=== PATIENT | female | born 1975 | race African-American/Black ===

== ENCOUNTER 2016-10-12 18:23 | Emergency (ER) | payer OTHER ==
[~2016-10-12] VITALS: Ht 157.5 cm; Wt 59.0 kg
[~2016-10-12 18:23] MED LIST: AMIT25TA PO; GABA-586 PO; LAMO50TA3 PO; LEVO100T5 PO
[2016-10-12 19:18] VITALS: BP 92/54
[2016-10-12] MEDS ORDERED: PRED20TA PO (19:43)
--- NOTE | 2016-10-12 19:44 | PHYS DOC ---
Past Medical History Past Medical History: Fibromyalgia, Hypothyroid, IBS, Other Additional Past Medical Histor: PTSD Past Surgical History: , Other Additional Past Surgical Histo: ganglion cyst removal, carpal tunnel release Alcohol Use: Occasionally Drug Use: Marijuana Adult General Chief Complaint Chief Complaint: ITCHING HPI HPI Patient is a 41 year old female presents emergency Department with a complaint of ongoing, diffuse itchy rash that began last night. Patient denies any changes in person hygiene products or body soaps. She denies any personal history of atopy. Patient denies taking any Benadryl as she does not have any access to get any. She denies any facial swelling or difficulty breathing. Review of Systems Review of Systems Constitutional: Denies fever or chills [] Eyes: Denies change in visual acuity, redness, or eye pain [] HENT: Denies nasal congestion or sore throat [] Respiratory: Denies cough or shortness of breath [] Cardiovascular: No additional information not addressed in HPI [] GI: Denies abdominal pain, nausea, vomiting, bloody stools or diarrhea [] : Denies dysuria or hematuria [] Musculoskeletal: Denies back pain or joint pain [] Integument: Denies rash or skin lesions [] Neurologic: Denies headache, focal weakness or sensory changes [] Endocrine: Denies polyuria or polydipsia [] Current Medications Current Medications Current Medications Medications (Trade) Dose Ordered Sig/Blanco Start Time Stop Time Status Last Admin Dose Admin Diphenhydramine HCl (Benadryl) 25 mg 1X ONCE 10/12/16 20:00 10/12/16 20:00 DC 10/12/16 19:48 25 MG Prednisone (Prednisone) 50 mg 1X ONCE 10/12/16 20:00 10/12/16 20:00 DC 10/12/16 19:48 50 MG Allergies Allergies Allergies Coded Allergies Type Severity Reaction Last Updated Verified Penicillins Allergy Intermediate rash 06/29/13 Yes Sulfa (Sulfonamide Antibiotics) Allergy Intermediate rash 06/29/13 Yes hydrocodone Allergy Unknown nausea and vomiting 10/02/13 Yes acetaminophen Adverse Reaction Unknown nausea 10/02/13 Yes oxycodone HCl Adverse Reaction Unknown nausea 10/02/13 Yes Physical Exam Physical Exam Constitutional: Well developed, well nourished, no acute distress, non-toxic appearance. [] HENT: Normocephalic, atraumatic, bilateral external ears normal, oropharynx moist, no oral exudates, nose normal. There is no angioedema. Eyes: PERRLA, EOMI, conjunctiva normal, no discharge. [] Neck: Normal range of motion, no tenderness, supple, no stridor. [] Cardiovascular:Heart rate regular rhythm, no murmur [] Lungs & Thorax: Bilateral breath sounds clear to auscultation Abdomen: Bowel sounds normal, soft, no tenderness, no masses, no pulsatile masses. [] Skin: Diffusely spread maculopapular rash to patient's trunk and extremities. There is some excoriation from scratching. There is no specific pattern or herald patch this rash. Rash is consistent with contact dermatitis. Back: No tenderness, no CVA tenderness. [] Extremities: No tenderness, no cyanosis, no clubbing, ROM intact, no edema. [] Neurologic: Alert and oriented X 3, normal motor function, normal sensory function, no focal deficits noted. [] Psychologic: Affect normal, judgement normal, mood normal. [] Current Patient Data Vital Signs Vital Signs Date Time Temp Pulse Resp B/P Pulse Ox O2 Delivery O2 Flow Rate FiO2 10/12/16 19:18 97.9 94 20 100 Room Air 97.9 EKG EKG [] Radiology/Procedures Radiology/Procedures [] Course & Med Decision Making Course & Med Decision Making Pertinent Labs and Imaging studies reviewed. (See chart for details) [] Dragon Disclaimer Dragon Disclaimer This electronic medical record was generated, in whole or in part, using a voice recognition dictation system. Departure Departure Impression: Primary Impression: Contact dermatitis Disposition: 01 HOME, SELF-CARE Condition: GOOD Referrals: GUME KHANNA MD (PCP) Patient Instructions: Contact Dermatitis, [id number] Additional Instructions: 1. Take the medication as prescribed. Take 25-50 mg of Benadryl every 6-8 hours for itching. 2. Review the discharge instructions provided for self-care and reasons to return to the emergency department. 3. Follow-up with your primary care doctor in 5-7 days for reexamination. Scripts Prednisone 20 Mg Tablet2 Tab PO DAILY contact dermatitis #5 TAB Prov:CAROLS TURK 10/12/16 Problem Qualifiers Primary Impression: Contact dermatitis Contact dermatitis type: allergic Contact dermatitis trigger: unspecified trigger Qualified Code: L23.9 - Allergic contact dermatitis, unspecified cause CARLOS TURK Oct 12, 2016 19:44
[2016-10-12] MEDS ORDERED: PREDNISONE 10 MG TABLET PO ONE (20:00)
[2016-10-12] MEDS ORDERED: DIPHENHYDRAMINE HCL 25 MG CAPSULE PO ONE (20:00)
== END 2016-10-12 19:50 | disposition home or self-care (01) ==
LOC: ER 18:23
DX: L23.9 Allergic contact dermatitis, unspecified cause (principal); M79.7 Fibromyalgia; E03.9 Hypothyroidism, unspecified; K58.9 Irritable bowel syndrome, unspecified; F43.10 Post-traumatic stress disorder, unspecified; F12.10 Cannabis abuse, uncomplicated; Z88.0 Allergy status to penicillin; Z88.2 Allergy status to sulfonamides; Z88.6 Allergy status to analgesic agent; Z88.5 Allergy status to narcotic agent
CPT/HCPCS: 99283; J7512; Q0163

== ENCOUNTER → 2016-11-02 | Outpatient (CLI) | payer OTHER ==
[2016-10-12 19:18] VITALS: BP 92/54
[~2016-11-02] MED LIST changes: +PRED20TA PO
--- NOTE | 2016-11-02 09:40 | RAD ---
DATE: 11/02/2016 EXAM: DIGITAL SCREEN BILAT W/CAD HISTORY: Routine screening COMPARISON: 10/08/2015 This study was interpreted with the benefit of Computerized Aided Detection (CAD). FINDINGS: There are scattered fibroglandular densities in the breasts. No new or enlarging breast densities are seen. Minimal benign calcification is present. No suspicious microcalcifications have developed. IMPRESSION: Stable mammograms without evidence of malignancy. BI-RADS CATEGORY: 2 BENIGN FINDING(S) RECOMMENDED FOLLOW-UP: 12M 12 MONTH FOLLOW-UP PQRS compliance statement: Patient information was entered into a reminder system with a target due date for the next mammogram. Mammography is a sensitive method for finding small breast cancers, but it does not detect them all and is not a substitute for careful clinical examination. A negative mammogram does not negate a clinically suspicious finding and should not result in delay in biopsying a clinically suspicious abnormality. "Our facility is accredited by the [employer] Mammography Program."
== END | disposition home or self-care (01) ==
LOC: MAMMO 08:45
PROVIDERS: ATTEND Internal Medicine
DX: Z12.31 Encounter for screening mammogram for malignant neoplasm of breast (principal)
CPT/HCPCS: G0202; 77067

== ENCOUNTER 2017-09-02 08:24 | Emergency (ER) | payer OTHER ==
[2017-09-02 08:43] LABS: URINE HCG POC HCG NEGATIVE (Negative)
[2017-09-02 08:46] LABS: BILIRUBIN,URINE NEGATIVE (NEG); CLARITY,URINE CLEAR; COLOR,URINE YELLOW; GLUCOSE,URINE NEGATIVE (NEG); NITRITE,URINE NEGATIVE (NEG); PH,URINE 5.5; PROTEIN,URINE NEGATIVE (NEG-TRACE); UROBILINOGEN,URINE 0.2 mg/dL (0.2 mg/dL)
[2017-09-02 08:49] LABS: BACTERIA,URINE MOD /HPF (0-FEW); SQUAMOUS EPITHELIAL CELL,UR MANY /LPF
[2017-09-02 08:50] LABS: RBC,URINE OCC /HPF (0-2)
== END 2017-09-02 09:15 | disposition home or self-care (01) ==
LOC: ER 09:15
DX: B37.9 Candidiasis, unspecified (principal); E03.9 Hypothyroidism, unspecified; F12.10 Cannabis abuse, uncomplicated; K58.9 Irritable bowel syndrome, unspecified; Z88.1 Allergy status to other antibiotic agents; Z88.0 Allergy status to penicillin; Z88.5 Allergy status to narcotic agent; Z88.6 Allergy status to analgesic agent; Z88.8 Allergy status to other drugs, medicaments and biological substances
CPT/HCPCS: 81001; 81025; 99283

== ENCOUNTER 2017-09-25 16:34 | Emergency (ER) | payer OTHER | END 2017-09-25 17:45 | disposition left against medical advice (07) | LOC: ER 16:34 | DX: M25.531 Pain in right wrist (principal); Z88.5 Allergy status to narcotic agent; Z88.0 Allergy status to penicillin; Z88.2 Allergy status to sulfonamides; Z88.6 Allergy status to analgesic agent; Z88.1 Allergy status to other antibiotic agents; Z53.21 Procedure and treatment not carried out due to patient leaving prior to being seen by health care provider ==

== ENCOUNTER → 2017-12-07 | Outpatient (CLI) | payer OTHER | END | disposition home or self-care (01) | LOC: MAMMO 07:50 | DX: Z12.31 Encounter for screening mammogram for malignant neoplasm of breast (principal) | CPT/HCPCS: 77067 ==

== ENCOUNTER 2018-01-25 07:22 | Emergency (ER) | payer OTHER ==
[2018-01-25 07:47] LABS: URINE HCG POC HCG NEGATIVE (Negative)
[2018-01-25 07:59] LABS: BILIRUBIN,URINE NEGATIVE (NEG); CLARITY,URINE CLEAR; COLOR,URINE YELLOW; GLUCOSE,URINE NEGATIVE (NEG); NITRITE,URINE NEGATIVE (NEG); PH,URINE 5.5; PROTEIN,URINE NEGATIVE (NEG-TRACE); UROBILINOGEN,URINE 0.2 mg/dL (0.2 mg/dL)
[2018-01-25 08:05] LABS: SQUAMOUS EPITHELIAL CELL,UR MOD /LPF
[2018-01-25 08:06] LABS: BACTERIA,URINE MODERATE /HPF (0-FEW)
[2018-01-25] MEDS: AZITHROMYCIN 250 MG TABLET. PO (08:20)
[2018-01-25] MEDS: cefTRIAXone IM 250 MG VIAL IM (08:22)
== END 2018-01-25 08:42 | disposition home or self-care (01) ==
LOC: ER 07:22
DX: R30.0 Dysuria (principal); E03.9 Hypothyroidism, unspecified; Z98.51 Tubal ligation status; Z88.0 Allergy status to penicillin; Z88.5 Allergy status to narcotic agent; Z88.2 Allergy status to sulfonamides; Z88.6 Allergy status to analgesic agent; Z88.8 Allergy status to other drugs, medicaments and biological substances
CPT/HCPCS: 81001; 81025; 87086; 87491; 87591; 96372; 99284; J0696; Q0144

== ENCOUNTER 2018-08-29 19:23 | Emergency (ER) | payer OTHER ==
[~2018-08-29] VITALS: Ht 157.5 cm; Wt 55.8 kg
[~2018-08-29 19:23] MED LIST changes: +FLUC150T PO; -GABA-586 PO; +GABA300C18 PO; +KETO15CR2 TP; +NITR100C62 PO; +PHEN100T82 PO
[2018-08-29 19:42] LABS: BILIRUBIN,URINE NEGATIVE (NEG); CLARITY,URINE CLEAR; COLOR,URINE YELLOW; NITRITE,URINE NEGATIVE (NEG); PH,URINE 5.5; PROTEIN,URINE NEGATIVE (NEG-TRACE); UROBILINOGEN,URINE 0.2 mg/dL (0.2 mg/dL)
[2018-08-29 19:50] LABS: BACTERIA,URINE FEW /HPF (0-FEW); RBC,URINE 0 /HPF (0-2); SQUAMOUS EPITHELIAL CELL,UR MANY /LPF; WBC,URINE RARE /HPF (0-4)
[2018-08-29] MEDS ORDERED: KETOROLAC 30 MG/ML VIAL. IV ONE (20:30)
--- NOTE | 2018-08-29 21:01 | PHYS DOC ---
Past Medical History Past Medical History: Fibromyalgia, Hypothyroid, IBS, Other Additional Past Medical Histor: PTSD Past Surgical History: , Tubal ligation, Other Additional Past Surgical Histo: ganglion cyst removal, carpal tunnel release, D &C, ENDOMETRIAL ABLATION Alcohol Use: None Drug Use: Marijuana Adult General Chief Complaint Chief Complaint: PAIN ON URINATION [facility] HPI Patient is a 43 year old female with a history of IBS, fibromyalgia, who presents to the ED today complaining of dysuria and pain around her urethra that began today. Patient denies any fever, nausea, vomiting. She states she has slight lower abdominal pain diffusely. She describes the pain as pressure and rates it as mild, she states the pain is intermittent. Denies any chance she is . Review of Systems Review of Systems Constitutional: Denies fever or chills [] Eyes: Denies change in visual acuity, redness, or eye pain [] HENT: Denies nasal congestion or sore throat [] Respiratory: Denies cough or shortness of breath [] Cardiovascular: No additional information not addressed in HPI [] GI: Reports slight lower abdominal pain, denies nausea, vomiting, bloody stools or diarrhea [] : Reports dysuria and urethral pain, denies hematuria [] Musculoskeletal: Denies back pain or joint pain [] Integument: Denies rash or skin lesions [] Neurologic: Denies headache, focal weakness or sensory changes [] All other systems were reviewed and found to be within normal limits, except as documented in this note. Current Medications Current Medications Current Medications Medications (Trade) Dose Ordered Sig/Blanco Start Time Stop Time Status Last Admin Dose Admin Info (CONTRAST GIVEN -- Rx MONITORING) 1 each PRN DAILY PRN 08/29/18 21:30 08/31/18 21:29 Iohexol (Omnipaque 300 Mg/ml) 75 ml 1X ONCE 08/29/18 21:30 08/29/18 21:31 DC 08/29/18 21:31 75 ML Ketorolac Tromethamine (Toradol 30mg Vial) 30 mg 1X ONCE 08/29/18 20:30 08/29/18 20:31 DC 08/29/18 20:52 30 MG Allergies Allergies Allergies Coded Allergies Type Severity Reaction Last Updated Verified Penicillins Allergy Intermediate rash 01/25/18 Yes Sulfa (Sulfonamide Antibiotics) Allergy Intermediate rash 06/29/13 Yes fluconazole Allergy Mild Blisters 09/02/17 Yes hydrocodone Allergy Unknown nausea and vomiting 10/02/13 Yes acetaminophen Adverse Reaction Unknown nausea 10/02/13 Yes oxycodone HCl Adverse Reaction Unknown nausea 10/02/13 Yes Physical Exam Physical Exam Constitutional: Well developed, well nourished, no acute distress, non-toxic appearance. [] HENT: Normocephalic, atraumatic, bilateral external ears normal, oropharynx moist, no oral exudates, nose normal. [] Eyes: PERRLA, EOMI, conjunctiva normal, no discharge. [] Neck: Normal range of motion, no tenderness, supple, no stridor. [] Cardiovascular:Heart rate regular rhythm, no murmur [] Lungs & Thorax: Bilateral breath sounds clear to auscultation [] Abdomen: Bowel sounds normal, soft, no tenderness, no masses, no pulsatile masses. [] Pelvic exam External pelvic appears normal, cervix is not well visualized, no CMT, no adnexal tenderness, small amount of white discharge noted in the vaginal vault. Skin: Warm, dry, no erythema, no rash. [] Back: No tenderness, no CVA tenderness. [] Extremities: No tenderness, no cyanosis, no clubbing, ROM intact, no edema. [] Neurologic: Alert and oriented X 3, normal motor function, normal sensory function, no focal deficits noted. [] Psychologic: Affect normal, judgement normal, mood normal. [] Current Patient Data Vital Signs Vital Signs Date Time Temp Pulse Resp B/P (MAP) Pulse Ox O2 Delivery O2 Flow Rate FiO2 08/29/18 19:32 97.9 108 18 112/54 (73) 99 Room Air 97.9 Lab Values Laboratory Tests Test 08/29/18 19:35 08/29/18 20:50 Urine Collection Type Unknown Urine Color Yellow Urine Clarity Clear Urine pH 5.5 Urine Specific Corrigan 1.025 Urine Protein Negative mg/dL (NEG-TRACE) Urine Glucose (UA) Negative mg/dL (NEG) Urine Ketones (Stick) Negative mg/dL (NEG) Urine Blood Negative (NEG) Urine Nitrite Negative (NEG) Urine Bilirubin Negative (NEG) Urine Urobilinogen Dipstick 0.2 mg/dL (0.2 mg/dL) Urine Leukocyte Esterase Negative (NEG) Urine RBC 0 /HPF (0-2) Urine WBC Rare /HPF (0-4) Urine Squamous Epithelial Cells Many /LPF Urine Bacteria Few /HPF (0-FEW) Urine Mucus Mod /LPF Urine Opiates Screen Neg (NEG) Urine Methadone Screen Neg (NEG) Urine Barbiturates Neg (NEG) Urine Phencyclidine Screen Neg (NEG) Urine Amphetamine/Methamphetamine Neg (NEG) Urine Benzodiazepines Screen Neg (NEG) Urine Cocaine Screen Neg (NEG) Urine Cannabinoids Screen Pos (NEG) Urine Ethyl Alcohol Neg (NEG) White Blood Count 6.7 x10^3/uL (4.0-11.0) Red Blood Count 4.23 x10^6/uL (3.50-5.40) Hemoglobin 12.4 g/dL (12.0-15.5) Hematocrit 37.9 % (36.0-47.0) Mean Corpuscular Volume 90 fL (79-100) Mean Corpuscular Hemoglobin 29 pg (25-35) Mean Corpuscular Hemoglobin Concent 33 g/dL (31-37) Red Cell Distribution Width 15.4 % (11.5-14.5) H Platelet Count 194 x10^3/uL (140-400) Neutrophils (%) (Auto) 53 % (31-73) Lymphocytes (%) (Auto) 37 % (24-48) Monocytes (%) (Auto) 6 % (0-9) Eosinophils (%) (Auto) 4 % (0-3) H Basophils (%) (Auto) 1 % (0-3) Neutrophils # (Auto) 3.5 x10^3uL (1.8-7.7) Lymphocytes # (Auto) 2.5 x10^3/uL (1.0-4.8) Monocytes # (Auto) 0.4 x10^3/uL (0.0-1.1) Eosinophils # (Auto) 0.3 x10^3/uL (0.0-0.7) Basophils # (Auto) 0.0 x10^3/uL (0.0-0.2) Sodium Level 143 mmol/L (136-145) Potassium Level 3.9 mmol/L (3.5-5.1) Chloride Level 105 mmol/L (98-107) Carbon Dioxide Level 29 mmol/L (21-32) Anion Gap 9 (6-14) Blood Urea Nitrogen 16 mg/dL (7-20) Creatinine 0.8 mg/dL (0.6-1.0) Estimated GFR (Cockcroft-Gault) 93.9 BUN/Creatinine Ratio 20 (6-20) Glucose Level 101 mg/dL (70-99) H Calcium Level 9.4 mg/dL (8.5-10.1) Total Bilirubin 0.2 mg/dL (0.2-1.0) Aspartate Amino Transferase (AST) 10 U/L (15-37) L Alanine Aminotransferase (ALT) 17 U/L (14-59) Alkaline Phosphatase 87 U/L (46-116) Total Protein 7.2 g/dL (6.4-8.2) Albumin 3.4 g/dL (3.4-5.0) Albumin/Globulin Ratio 0.9 (1.0-1.7) L Lipase 204 U/L (73-393) Ethyl Alcohol Level < 10 mg/dL (0-10) Laboratory Tests 08/29/18 20:50 Laboratory Tests 08/29/18 20:50 Microbiology 08/29/18 Wet Prep - Final, Complete EKG EKG [] Radiology/Procedures Radiology/Procedures []PROCEDURE: CT ABD PELV W/ IV CONTRST ONLY ADDENDUM Addendum: Impression #2 should read fullness is seen in the cervix. Correlate with physical exam for cervicitis. Electronically signed by: Jens Matias DO (08/29/2018 10:00 PM) [facility] DICTATED AND SIGNED BY: JENS MATIAS DO DATE: 08/29/18 CC: IKE ST APRN; GUME KHANNA MD ~ RS Compliance statement: One or more of the following individualized dose reduction techniques were utilized for this examination: 1. Automated exposure control. 2. Adjustment of the mA and/or kV according to patient size. 3. Use of iterative reconstruction technique. Indication:LLQ pain and burning w urination x 4 days, [id number] 75ml, no priors TECHNIQUE: CT abdomen and pelvis with IV contrast with multiplanar reformats. COMPARISON: None FINDINGS: Heart is normal in size. No pericardial or pleural effusion. Clear lung bases. Liver, spleen, gallbladder, pancreas, adrenals and kidneys are within normal limits. No enlarged retroperitoneal or pelvic adenopathy. No free pelvic fluid or ascites. No bowel obstruction. Anteverted uterus. Fullness is seen in the cervix. Urinary bladder is decompressed however shows no radiopaque stone. No pneumoperitoneum. No suspicious bony lesion. IMPRESSION: 1. No nephrolithiasis or hydronephrosis. 2. Fullness is seen in the cervix. Correlate with physical exam for sinusitis. Electronically signed by: Jens Matias DO (08/29/2018 9:44 PM) [facility] DICTATED and SIGNED BY: JENS MATIAS DO DATE: 08/29/182138 Course & Med Decision Making Course & Med Decision Making Pertinent Labs and Imaging studies reviewed. (See chart for details) This is a 43-year-old female patient presenting to the ED today complaining of dysuria and slight abdominal pain with urethral pain that began today, urine analysis is negative for UTI.Wet prep negative for any acute findings. CBC, CMP , no acute findings. CT of the abdomen and pelvic was noted for fullness in the cervix. I went ahead and treated this patient for possibility of PID and requested her to f/u up with her OBGYN in 1-2 weeks. Dragon Disclaimer Dragon Disclaimer This electronic medical record was generated, in whole or in part, using a voice recognition dictation system. Departure Departure Impression: Primary Impression: Dysuria Disposition: 01 HOME, SELF-CARE Condition: STABLE Referrals: GUME KHANNA MD (PCP) JOSUÉ BECK MD follow up next week Patient Instructions: Dysuria-Brief Additional Instructions: You were evaluated in the emergency room, as discussed, I highly recommend you follow-up with Dr. Beck in the next 1-2 weeks. Please come back to the emergency room at any point symptoms worsen. IKE ST APRN Aug 29, 2018 21:01
[2018-08-29 21:04] LABS: BASO % 1 % (0-3); EOS # 0.3 x10^3/uL (0.0-0.7); EOS % 4 % (0-3); HEMATOCRIT 37.9 % (36.0-47.0); HEMOGLOBIN 12.4 g/dL (12.0-15.5); LYMPH # 2.5 x10^3/uL (1.0-4.8); LYMPH % 37 % (24-48); MEAN CORPUSCULAR HEMOGLOBIN 29 pg (25-35); MEAN CORPUSCULAR HGB CONC 33 g/dL (31-37); MEAN CORPUSCULAR VOLUME 90 fL (79-100); MONO # 0.4 x10^3/uL (0.0-1.1); MONO % 6 % (0-9); NEUT # 3.5 x10^3uL (1.8-7.7); NEUT % 53 % (31-73); PLATELET COUNT 194 x10^3/uL (140-400); RED BLOOD COUNT 4.23 x10^6/uL (3.50-5.40); RED CELL DISTRIBUTION WIDTH 15.4 % (11.5-14.5); WHITE BLOOD COUNT 6.7 x10^3/uL (4.0-11.0)
[2018-08-29 21:17] LABS: CALCIUM 9.4 mg/dL (8.5-10.1); CREATININE 0.8 mg/dL (0.6-1.0); GFR 93.9; POTASSIUM 3.9 mmol/L (3.5-5.1)
[2018-08-29 21:18] LABS: AMPHETAMINE/METHAMPHETAMINE NEG (NEG); BARBITURATES NEG (NEG); BENZODIAZEPINES NEG (NEG); CANNABINOIDS POS (NEG); COCAINE NEG (NEG); METHADONE NEG (NEG); OPIATES NEG (NEG); PHENCYCLIDINE NEG (NEG)
[2018-08-29 21:22] LABS: ALBUMIN 3.4 g/dL (3.4-5.0); ALBUMIN/GLOBULIN RATIO 0.9 (1.0-1.7); TOTAL BILIRUBIN 0.2 mg/dL (0.2-1.0); TOTAL PROTEIN 7.2 g/dL (6.4-8.2)
[2018-08-29] MEDS ORDERED: IOHEXOL 300 MG/ML 100ML VIAL. IV ONE (21:30)
[2018-08-29] MEDS ORDERED: CONTRAST GIVEN. MC PRN (21:30)
--- NOTE | 2018-08-29 21:47 | RAD ---
PQRS Compliance statement: One or more of the following individualized dose reduction techniques were utilized for this examination: 1. Automated exposure control. 2. Adjustment of the mA and/or kV according to patient size. 3. Use of iterative reconstruction technique. Indication:LLQ pain and burning w urination x 4 days, [id number] 75ml, no priors TECHNIQUE: CT abdomen and pelvis with IV contrast with multiplanar reformats. COMPARISON: None FINDINGS: Heart is normal in size. No pericardial or pleural effusion. Clear lung bases. Liver, spleen, gallbladder, pancreas, adrenals and kidneys are within normal limits. No enlarged retroperitoneal or pelvic adenopathy. No free pelvic fluid or ascites. No bowel obstruction. Anteverted uterus. Fullness is seen in the cervix. Urinary bladder is decompressed however shows no radiopaque stone. No pneumoperitoneum. No suspicious bony lesion. IMPRESSION: 1. No nephrolithiasis or hydronephrosis. 2. Fullness is seen in the cervix. Correlate with physical exam for sinusitis. Electronically signed by: Jens Matias DO (08/29/2018 9:44 PM) [facility]
[2018-08-29] MEDS ORDERED: metroNIDAZOLE 500 MG TABLET PO ONE (22:30)
[2018-08-29] MEDS ORDERED: cefTRIAXone IM 250 MG VIAL IM ONE (22:30)
[2018-08-29] MEDS ORDERED: CETIRIZINE HCL 10 MG TABLET. PO ONE (22:30)
[2018-08-29] MEDS ORDERED: AZITHROMYCIN 250 MG TABLET. PO ONE (22:30)
[2018-08-29 22:37] VITALS: BP 108/59
[2018-08-31 13:21] LABS: GC PROBE Negative (Negative)
[2018-11-10] MEDS ORDERED: TRAM50TA PO (13:19)
[2018-11-10] MEDS ORDERED: NAPR-514 PO (13:19)
== END 2018-08-29 23:00 | disposition home or self-care (01) ==
LOC: ER 19:23
DX: R30.0 Dysuria (principal); R10.30 Lower abdominal pain, unspecified; E03.9 Hypothyroidism, unspecified; Z98.890 Other specified postprocedural states; Z98.51 Tubal ligation status; Z88.5 Allergy status to narcotic agent; Z88.0 Allergy status to penicillin; Z88.6 Allergy status to analgesic agent; Z88.8 Allergy status to other drugs, medicaments and biological substances
CPT/HCPCS: 36415; 74177; 80053; 80307; 81001; 83690; 85025; 87491; 87591; 96372; 96374; 99284; G0480; J0696; J1885; Q0111; Q0144; Q9967

== ENCOUNTER 2018-10-10 13:30 | Inpatient (IN) | payer OTHER ==
[~2018-10-10] VITALS: Ht 157.5 cm; Wt 59.4 kg
[2018-11-06] MEDS ORDERED: LEVO112T4 PO (18:13)
[2018-11-06] MEDS ORDERED: VALA500T PO (18:14)
[2018-11-06] MEDS ORDERED: CHOL500016 PO (18:16)
[2018-11-06] MEDS ORDERED: PRAM0.125 PO (18:16)
[2018-11-06] MEDS ORDERED: IBUP200T44 PO (18:18)
[2018-11-06] MEDS ORDERED: MULT1TAB52 PO (18:18)
[2018-11-08] VITALS (7 sets, daily range): BP systolic 116–126; BP diastolic 62–74
[2018-11-08] MEDS ORDERED: CLINDAMYCIN 900MG PREMIX 50 ML IV ONE ×2 (06:53→07:00)
[2018-11-08] MEDS ORDERED: DEXAMETHASONE SOD PHOS 4 MG/ML VIAL ONE ×2 (06:55→06:56)
[2018-11-08] MEDS ORDERED: ONDANSETRON PF 4 MG/2 ML VIAL. IV PRN ×2 (07:00→08:15)
[2018-11-08] MEDS ORDERED: LIDOCAINE 1% PF 2 ML VIAL. ID PRN (07:00)
[2018-11-08] MEDS ORDERED: MORPHINE SULFATE 2 MG/ML VIAL. IV PRN (07:00)
[2018-11-08] MEDS ORDERED: fentaNYL PF VIAL 100 MCG/2 ML VIAL IV PRN (07:00)
[2018-11-08] MEDS ORDERED: IV RINGERS,LACTATED 1000ML 1,000 ML IV SCH (07:00)
[2018-11-08] MEDS ORDERED: HYDROmorphone 2 MG/ML VIAL IV PRN (07:00)
[2018-11-08] MEDS ORDERED: PROCHLORPERAZINE 10 MG/2 ML VIAL. IV PRN (07:00)
[2018-11-08] MEDS ORDERED: fentaNYL PF VIAL 100 MCG/2 ML VIAL ONE ×3 (07:05→09:23)
[2018-11-08] MEDS ORDERED: SUCCINYLCHOLINE 200 MG/10 ML VIAL. ONE (07:05)
[2018-11-08] MEDS ORDERED: PROPOFOL 20 ML IV ONE (07:05)
[2018-11-08] MEDS ORDERED: LIDOCAINE 2% PF 5 ML VIAL. ONE (07:05)
[2018-11-08] MEDS ORDERED: ROCURONIUM 50 MG/5 ML VIAL. ONE (07:05)
[2018-11-08 07:33] LABS: BASO % 1 % (0-3); EOS # 0.3 x10^3/uL (0.0-0.7); EOS % 4 % (0-3); HEMATOCRIT 38.7 % (36.0-47.0); LYMPH # 2.6 x10^3/uL (1.0-4.8); LYMPH % 38 % (24-48); MEAN CORPUSCULAR HEMOGLOBIN 30 pg (25-35); MEAN CORPUSCULAR HGB CONC 34 g/dL (31-37); MEAN CORPUSCULAR VOLUME 90 fL (79-100); MONO # 0.4 x10^3/uL (0.0-1.1); MONO % 6 % (0-9); NEUT # 3.6 x10^3uL (1.8-7.7); NEUT % 52 % (31-73); PLATELET COUNT 197 x10^3/uL (140-400); RED BLOOD COUNT 4.29 x10^6/uL (3.50-5.40); RED CELL DISTRIBUTION WIDTH 14.4 % (11.5-14.5)
[2018-11-08 07:39] LABS: U PREG PATIENT NEGATIVE (NEG)
[2018-11-08] MEDS: CLINDAMYCIN 600MG PREMIX 50 ML IV SCH (07:42)
[2018-11-08] MEDS ORDERED: DESFLURANE 61 TO 120 MINUTES IH ONE (07:55)
[2018-11-08] MEDS ORDERED: diphenhydrAMINE 50 MG/ML VIAL IV PRN (08:15)
[2018-11-08] MEDS ORDERED: CALCIUM CARBONATE 500 MG TAB.CHEW PO PRN (08:15)
[2018-11-08] MEDS ORDERED: 0.9 % SODIUM CHLORIDE 10 ML DISP.SYRIN. IV PRN (08:15)
[2018-11-08] MEDS ORDERED: DEXTROSE 50% 25 GM / 50ML DISP.SYRIN. IV PRN (08:15)
[2018-11-08] MEDS ORDERED: NALOXONE 0.4 MG/ML VIAL. IV PRN (08:15)
[2018-11-08] MEDS ORDERED: oxyCODONE/APAP 5/325 1 TAB TABLET PO PRN (08:15)
[2018-11-08] MEDS ORDERED: MAG HYDROX/ALUMINUM HYD/SIMETH 30 ML ORAL.SUSP PO PRN (08:15)
[2018-11-08] MEDS ORDERED: ZOLPIDEM 5 MG TABLET. PO PRN (08:15)
[2018-11-08] MEDS ORDERED: diphenhydrAMINE HCL 25 MG CAPSULE PO PRN (08:15)
[2018-11-08] MEDS ORDERED: ONDANSETRON PF 4 MG/2 ML VIAL. ONE (08:26)
[2018-11-08] MEDS ORDERED: NEOSTIGMINE METHYLSULFATE 5 MG/5 ML SYRINGE. ONE (08:27)
[2018-11-08] MEDS ORDERED: GLYCOPYRROLATE 1 MG/5 ML VIAL. ONE (08:27)
[2018-11-08] MEDS ORDERED: FAMOTIDINE 20 MG/2 ML VIAL ONE (08:34)
--- NOTE | 2018-11-08 09:08 | PDOC ---
BRIEF OPERATIVE NOTE Date: November 08, 2018 Pre-Op Diagnosis AOB/fibroids Post-Op Diagnosis Same Procedure Performed FRANCINE Surgeon Ebony Anesthesia Type: General Blood Loss 150 Specimens Obtained Uterus Complications None JOSUÉ LORD MD November 08, 2018 09:08
[2018-11-08] MEDS: fentaNYL PF VIAL 100 MCG/2 ML VIAL IV PRN ×2 (09:30→10:10)
[2018-11-08] MEDS: HYDROmorphone 2 MG/ML VIAL IV PRN ×3 (10:50→20:04)
[2018-11-08] MEDS: KETOROLAC 30 MG/ML VIAL. IV SCH ×2 (14:34→20:37)
[2018-11-08] MEDS: DOCUSATE SODIUM 100 MG CAPSULE. PO SCH (20:49)
[2018-11-08] MEDS: SENNOSIDES/DOCUSATE 8.6/50MG TABLET. PO SCH (20:49)
[2018-11-09] MEDS ORDERED: IBUPROFEN 400 MG TABLET. PO PRN (00:45)
[2018-11-09] MEDS: KETOROLAC 30 MG/ML VIAL. IV SCH ×2 (02:32→06:32)
[2018-11-09] MEDS: GABAPENTIN 300 MG CAPSULE. PO SCH ×2 (03:24→20:37)
[2018-11-09 04:48] LABS: CALCIUM 8.7 mg/dL (8.5-10.1); CREATININE 0.7 mg/dL (0.6-1.0); GFR 109.5
[2018-11-09] MEDS: LEVOTHYROXINE 112 MCG TABLET PO SCH (05:27)
[2018-11-09] MEDS: CLINDAMYCIN 600MG PREMIX 50 ML IV SCH (05:27)
[2018-11-09 05:36] VITALS: BP 118/62
[2018-11-09] MEDS ORDERED: LEVOTHYROXINE SODIUM INJ 100 MCG in NORMAL SALINE 5 ML IVP SCH (09:00)
[2018-11-09] MEDS: DOCUSATE SODIUM 100 MG CAPSULE. PO SCH (09:00)
[2018-11-09] MEDS: SENNOSIDES/DOCUSATE 8.6/50MG TABLET. PO SCH ×2 (10:29→21:43)
[2018-11-09 10:30] VITALS: BP 121/68
[2018-11-09] MEDS: IBUPROFEN 400 MG TABLET. PO PRN ×2 (10:30→17:03)
--- NOTE | 2018-11-09 12:52 | NUR ---
patient has history of 2 c/s in past and history of problems with fibroids
[2018-11-09] MEDS: SIMETHICONE 80 MG TAB.CHEW PO PRN (19:17)
[2018-11-09 21:00] VITALS: BP 116/66
[2018-11-09] MEDS ORDERED: traMADol 50 MG TABLET PO PRN ×3 (21:30→21:45)
[2018-11-10] MEDS: LEVOTHYROXINE 112 MCG TABLET PO SCH (06:29)
[2018-11-10 06:50] VITALS: BP 116/60
[2018-11-10] MEDS: SENNOSIDES/DOCUSATE 8.6/50MG TABLET. PO SCH (09:23)
[2018-11-10] MEDS: DOCUSATE SODIUM 100 MG CAPSULE. PO SCH (09:23)
[2018-11-10] MEDS: IBUPROFEN 400 MG TABLET. PO PRN (09:24)
[2018-11-10] MEDS: SIMETHICONE 80 MG TAB.CHEW PO PRN (09:46)
[2018-11-10] MEDS ORDERED: BISACODYL 10 MG SUPP.RECT. PR PRN ×2 (12:00)
--- NOTE | 2018-11-10 12:05 | NUR ---
BISACODYL SUPP INSERTED
--- NOTE | 2018-11-10 12:07 | PATHOLOGY ---
[facility] Accession Number: [id number] . 01 Material submitted: . uterus - UTERUS AND CERVIX . 01 Clinical history: . Fibroids . 02 Diagnosis: Uterus, hysterectomy: - Cervix with mild chronic inflammation and nabothian cysts. - Proliferative phase endometrium. - Myometrium with leiomyoma, 0.5 cm. - Serosal surface with focal fibrous adhesions. (SKM:[facility] 11/10/2018) QTP/11/10/2018 . 02 Electronically signed: . Dave Goff MD, Pathologist NPI- [id number] . 01 Gross description: . The specimen is received in formalin labeled "Renu Whitfield, uterus and cervix". Received is an 83 g, 8.8 x 4.8 x 3.9 cm uterus with attached cervix. The uterine serosa is pink-harden and smooth to slightly disrupted in appearance with overlying adhesions on the anterior aspect. The 1.0 cm, slit-like cervical os is surrounded by pale rodriguez, smooth ectocervical mucosa. The uterus is oriented using the peritoneal reflection and the anterior paracervical margin is inked black. The uterus is opened laterally to reveal a pale rodriguez endocervical canal measuring 2.8 cm in length. The endometrial cavity is triangular and stenotic towards the base, measuring 3.8 cm in length by 1.9 cm in width. The endometrium is pale rodriguez, glistening to scarred in appearance and measures less than 0.1 cm in thickness. Serial sectioning reveals a rodriguez-pink, trabeculated myometrium measuring 1.8 cm in thickness displaying a single intramural fibroid measuring 0.5 cm located in the posterior aspect. There is also a unilocular cystic structure present measuring 0.5 cm filled with clear fluid near the left cornu. The specimen is submitted representatively as follows: . A1 12:00 cervix A2 6:00 cervix A3 serosal adhesions A4 anterior endomyometrium A5 posterior endomyometrium A6 single intramural fibroid A7 cystic structure near left cornu. (CAA; 11/09/2018) QAC/QAC . 02 Pathologist provided ICD-10: D25.9, N72 . 02 CPT . 797238 Specimen Comment: A courtesy copy of this report has been sent to Specimen Comment: [phone]. Specimen Comment: Report sent to [facility]formed at: [facility] [address] [id number] MD Keyshawn Graves MD Phone: [phone] [facility]formed at: [facility] [address] [place] [id number] MD Fausto Carreon MD Phone: [phone]
[2018-11-10 12:14] VITALS: BP 112/72
[2018-11-10] MEDS ORDERED: NAPR-514 PO (13:19)
[2018-11-10] MEDS ORDERED: TRAM50TA PO (13:19)
--- NOTE | 2018-11-10 13:49 | OP ---
DATE OF SURGERY: 11/08/2018 PREOPERATIVE DIAGNOSES: Abnormal uterine bleeding, symptomatic leiomyomata. POSTOPERATIVE DIAGNOSES: Abnormal uterine bleeding, symptomatic leiomyomata. PROCEDURE: Total abdominal hysterectomy. SURGEON: Shantanu Beck M.D. SIDE PANEL PADDER: None. ANESTHESIA: General. ESTIMATED BLOOD LOSS: 150 mL. FLUIDS: Crystalloid. SPECIMENS: Uterus. COMPLICATIONS: None. CONDITION: Stable. DESCRIPTION OF PROCEDURE: After risks, benefits, indications, alternatives, and expectations discussed in detail with the patient, the patient brought to the OR theater, placed in supine position. After adequate general endotracheal anesthesia, the patient was prepped and draped in usual sterile manner. Previous Pfannenstiel incision was taken out in toto with Bovie cautery and scalpel. Subcutaneous tissue was taken down to the rectus fascia. Rectus fascia was nicked in the midline with Bovie cautery, extended laterally in each direction with Bovie cautery. The upper edge of rectus fascia was grasped x 2 with Adrienne clamps, elevated above rectus muscle, both bluntly and sharply with Bovie cautery. Same procedure was carried out on lower edge of rectus fascia. Rectus muscle was nicked in the midline, extended superiorly and inferiorly with Bovie cautery. Parietal peritoneum was entered bluntly. The patient was placed in slight Trendelenburg. Intestine was packed cephalad with laparotomy sponges. Deandre retractor was placed within the pelvic cavity. Uterus was grasped with a single tooth tenaculum, elevated cephalad and anteriorly. The cornua were identified. The left cornu using the ligature was taken down sequentially to the cardinal ligaments. Good hemostasis was assured at all time. Same procedure was carried out on the opposite side. The cardinal ligaments were clamped, cut, and tied with Daron clamps in the usual fashion. Good hemostasis was assured. The bladder flap was also created prior to this and the bladder was displaced caudad. The upper edge of the vaginal vault was appreciated. C curved clamps were placed across this upper vagina and the uterus was transected from these attachments with Dutch scissors. Vaginal cuff was reapproximated with 0 Vicryl in a bdtzsy-pf-szvin fashion. Good hemostasis was assured. The ureters were inspected bilaterally and noted to be peristalsing. The pelvis was irrigated copiously with warm normal saline. The Deandre retractor was removed. Sponges were removed and accounted for from the upper abdomen. The intestines were allowed to fall back into their normal place. The rectus muscle was reapproximated with 0 Vicryl in a horizontal mattress stitch fashion. Areas of bleeding were controlled with Bovie cautery. Fascia was reapproximated with 0 PDS self-retention stitch. Subcutaneous tissue was irrigated copiously with warm normal saline. The skin was reapproximated with Insorb and was reinforced with sterile surgical james. Sponge, needle, instrument counts correct x 2 per nurse staff. SHANTANU BECK MD DR: MICHELLE/sonia JOB#: [id number] / [id number]
--- NOTE | 2018-11-10 15:15 | HP ---
ADMIT DATE: 11/08/2018 ADMISSION DIAGNOSES: Abnormal uterine bleeding, symptomatic leiomyomata, pelvic pain. DISCHARGE DIAGNOSES: Abnormal uterine bleeding, symptomatic leiomyomata, pelvic pain status post total abdominal hysterectomy. HISTORY OF PRESENT ILLNESS: This is a 43-year-old black female 3, para 3 that presented to my office with a greater than year history of abnormal uterine bleeding, symptomatic leiomyomata. The patient underwent an endometrial biopsy, which was negative for malignancy. The patient states the pain interferes with her activities of daily living and the bleeding sometimes so pronounced that she is not able to do activities of daily living. PAST MEDICAL HISTORY: Per HPI. SOCIAL HISTORY: Does not smoke, drink or use any illicit drugs. FAMILY HISTORY: Mother had a stroke, allergies and migraines. Her last menstrual period was 08/2017. gravidaty and parity is a 3, para 3. No history of STDs. ALLERGIES: PENICILLINS, HYDROCODONE, OXYCODONE. PHYSICAL EXAMINATION: VITAL SIGNS: Height 61.5 inches, weight 131.2, BMI is 24.39, blood pressure is 117/85, pulse is 94, temperature is 98. HEENT: Within normal limits. LUNGS: Clear to auscultation. BREASTS: No abnormal masses or dominant masses, no axillary nodes. ABDOMEN: Scaphoid, tender suprapubically. BACK: No CVA tenderness. EXTREMITIES: No clubbing, cyanosis or edema. EXTERNAL GENITALIA: Appears normal. Vaginal vault is normal. Cervix is normal. Uterus is irregular shape, 10-week size. Adnexa, no dominant masses. IMPRESSION: Abnormal uterine bleeding, symptomatic leiomyomata, chronic pelvic pain. PLAN: Total abdominal hysterectomy. OJSUÉ LORD MD DR: MICHELLE/sonia JOB#: [id number] / [id number]
[2018-11-10 16:00] VITALS: BP 121/68
--- NOTE | 2018-11-10 18:47 | DS ---
DATE OF DISCHARGE: 11/10/2018 ADMISSION DIAGNOSES: Admitted for total abdominal hysterectomy for symptomatic leiomyomata, abnormal uterine bleeding, chronic pelvic pain. DISCHARGE DIAGNOSES: Admitted for total abdominal hysterectomy for symptomatic leiomyomata, abnormal uterine bleeding, chronic pelvic pain, status post total abdominal hysterectomy. HOSPITAL COURSE: The patient's hospital course was unremarkable. The patient, however, did have allergy to NARCOTICS. Pain was controlled with Toradol and oral NSAIDs and finally, she was put on tramadol, which seemed to control her discomfort along with naproxen. The patient on postop day #1 was tolerating regular diet, ambulating in the halls without assistance. Pain towards the evening, it was better controlled. On the day of discharge, she was on tramadol and pain was being controlled very well. The patient's postop H and H was 35.6, down from 38.7. Incision was clean, dry and intact without any signs of infection. The patient was discharged home in stable condition. Routine discharge instructions were given. The patient is to follow up with me within the week. The patient was discharged home on tramadol and naproxen. JOSUÉ LORD MD DR: MICHELLE/sonia JOB#: [id number] / [id number]
== END 2018-11-10 17:00 | disposition home or self-care (01) | DRG 742 ==
LOC: OPSVCIP 11-08 06:23 → 3 NORTH 11-08 11:00
PROVIDERS: ADMIT Specialist; ATTEND Specialist
PROC: 0UT90ZZ Resection of Uterus, Open Approach (ICD-10-PCS; principal; 2018-11-10)
DX: D25.9 Leiomyoma of uterus, unspecified (principal); D62 Acute posthemorrhagic anemia; N93.9 Abnormal uterine and vaginal bleeding, unspecified; R10.2 Pelvic and perineal pain; Z82.3 Family history of stroke; Z88.5 Allergy status to narcotic agent; Z88.0 Allergy status to penicillin; Z88.2 Allergy status to sulfonamides; Z88.8 Allergy status to other drugs, medicaments and biological substances; Z79.899 Other long term (current) drug therapy
CPT/HCPCS: 36415; 80048; 81025; 85014; 85025; 86850; 86900; 86901; 88307; C1769; J0330; J1100; J1170; J1200; J1885; J2001; J2405; J2704; J2710; J3010; J3490; J7120; A4461

== ENCOUNTER → 2019-02-28 | Outpatient (CLI) | payer MEDICAID ==
[~2019-02-28] MED LIST changes: +CHOL500016 PO; +IBUP200T44 PO; +LEVO112T4 PO; +MULT1TAB52 PO; +NAPR-514 PO; +PRAM0.125 PO; +TRAM50TA PO; +VALA500T PO
--- NOTE | 2019-02-28 17:41 | RAD ---
DATE: 02/28/2019 EXAM: DIGITAL SCREEN BILAT W/CAD HISTORY: Routine screening COMPARISON: 11/02/2016 and 12/07/2017 mammographic exams This study was interpreted with the benefit of Computerized Aided Detection (CAD). Breast Density: SCATTERED The breast parenchyma shows scattered fibroglandular densities. Breast parenchyma level B. FINDINGS: No suspicious calcifications or distortion. Asymmetry involving the left upper MLO posteriorly approximately 6.5 cm from the nipple is present. IMPRESSION: Asymmetry is new in the interval involving the left posterior breast. Spot compression recommended. Ultrasound may be needed. BI-RADS CATEGORY: 0 INCOMPLETE: NEEDS ADDITIONAL IMAGING EVALUATION AND/OR PRIOR MAMMOGRAMS FOR COMPARISON. RECOMMENDED FOLLOW-UP: ADD ADDITIONAL IMAGING PQRS compliance statement: Patient information was entered into a reminder system with a target due date pending additional imaging for the next mammogram. Mammography is a sensitive method for finding small breast cancers, but it does not detect them all and is not a substitute for careful clinical examination. A negative mammogram does not negate a clinically suspicious finding and should not result in delay in biopsying a clinically suspicious abnormality. "Our facility is accredited by the [employer] Mammography Program."
== END | disposition home or self-care (01) ==
LOC: MAMMO 08:43
PROVIDERS: ATTEND Specialist
DX: Z12.31 Encounter for screening mammogram for malignant neoplasm of breast (principal)
CPT/HCPCS: 77067

== ENCOUNTER → 2019-03-07 | Outpatient (CLI) | payer MEDICAID ==
--- NOTE | 2019-03-07 15:17 | RAD ---
DATE: 03/07/2019 EXAM: DIGITAL DIAGNOSTIC LT, BREAST LEFT HISTORY: Left breast focal asymmetry COMPARISON: Bilateral mammogram 02/20/2019 This study was interpreted with the benefit of Computerized Aided Detection (CAD). FINDINGS: Spot compression CC, views of the left breast were performed. There is a circumscribed 8.5 mm mass in the upper outer left breast, 5 to 6 cm from the nipple. Targeted sonographic evaluation was performed. In the left breast at the 2:00 position, 5 cm from the nipple there is a circumscribed 5 x 5 x 4 mm hypoechoic cyst with through transmission, internal debris and septation. This may represent a complicated cyst or cluster of cysts. Recommend 6 month follow-up left breast ultrasound to assess stability. IMPRESSION: Probably benign finding left breast with a likely complicated cyst or cluster of cysts at the 2:00 position, 5 cm from the nipple. Finding is associated with pain. Six-month follow-up ultrasound is recommended. BI-RADS CATEGORY: 3 PROBABLY BENIGN FINDING(S)-SHORT INTERVAL FOLLOW-UP SUGGESTED RECOMMENDED FOLLOW-UP: 6M 6 MONTH FOLLOW-UP PQRS compliance statement: Mammography is a sensitive method for finding small breast cancers, but it does not detect them all and is not a substitute for careful clinical examination. A negative mammogram does not negate a clinically suspicious finding and should not result in delay in biopsying a clinically suspicious abnormality. "Our facility is accredited by the [employer] Mammography Program."
== END | disposition home or self-care (01) ==
LOC: US 10:38
PROVIDERS: ATTEND Specialist
DX: N64.89 Other specified disorders of breast (principal); Z12.31 Encounter for screening mammogram for malignant neoplasm of breast
CPT/HCPCS: 76641; 77065

== ENCOUNTER 2019-03-30 08:32 | Emergency (ER) | payer MEDICAID ==
[~2019-03-30] VITALS: Ht 157.5 cm; Wt 57.6 kg
[2019-03-30 08:54] VITALS: BP 114/70
--- NOTE | 2019-03-30 09:09 | PHYS DOC ---
Past Medical History Past Medical History: Fibromyalgia, Hypothyroid, IBS, Other Additional Past Medical Histor: PTSD Past Surgical History: , Tubal ligation, Other Additional Past Surgical Histo: ganglion cyst removal, carpal tunnel release, D&C, ENDOMETRIAL ABLATION Alcohol Use: None Drug Use: Marijuana Adult General Chief Complaint Chief Complaint: VAGINAL PROBLEM HPI HPI Patient is a 44 year old [female] who presents with [vaginal discharge starting this morning. Patient reports she had intercourse with partner this morning, and shortly afterwards she started to experience some vaginal discomfort. States she had noticed some vaginal discharge starting 3-4 days ago, has noticed it to be white, 'cloud like' in her underwear. States no recent anal intercourse. States no concern for STI. States she recently had hysterectomy, 11/2018. Denies any vaginal bleeding. Denies change in urination. Reports some burning and discomfort after intercourse. Denies use of any products recently. states she has had BV and yeast infections in the past ] Review of Systems Review of Systems Constitutional: Denies fever or chills [] Respiratory: Denies cough or shortness of breath [] Cardiovascular: No additional information not addressed in HPI [] GI: Denies abdominal pain, nausea, vomiting, bloody stools or diarrhea does report this morning she had just a little bit of lower left quadrant pain which resolved after 15 minutes[] : Denies dysuria or hematuria does report whitish vaginal discharge intermittently over the past week, has noticed more this morning, with some discomfort after intercourse. [] Musculoskeletal: Denies back pain or joint pain [] Integument: Denies rash or skin lesions [] Neurologic: Denies headache, focal weakness or sensory changes [] Endocrine: Denies polyuria or polydipsia [] All other systems were reviewed and found to be within normal limits, except as documented in this note. Allergies Allergies Allergies Coded Allergies Type Severity Reaction Last Updated Verified Penicillins Allergy Intermediate rash 11/06/18 Yes Sulfa (Sulfonamide Antibiotics) Allergy Intermediate rash 11/06/18 Yes fluconazole Allergy Mild Blisters 11/06/18 Yes hydrocodone Allergy Mild nausea and vomiting 11/09/18 Yes acetaminophen Adverse Reaction Mild nausea 11/09/18 Yes oxycodone HCl Adverse Reaction Mild nausea 11/09/18 Yes Physical Exam Physical Exam Constitutional: Well developed, well nourished, no acute distress, non-toxic appearance. [] HENT: Normocephalic, atraumatic, bilateral external ears normal, oropharynx moist, no oral exudates, nose normal. [] Cardiovascular:Heart rate regular rhythm, no murmur [] Lungs & Thorax: Bilateral breath sounds clear to auscultation [] Abdomen: Bowel sounds normal, soft, no tenderness, no masses, no pulsatile masses. [] Skin: Warm, dry, no erythema, no rash. [] Back: No tenderness, no CVA tenderness. [] Extremities: No tenderness, no cyanosis, no clubbing, ROM intact, no edema. [] Neurologic: Alert and oriented X 3, normal motor function, normal sensory function, no focal deficits noted. [] Psychologic: Affect normal, judgement normal, mood normal. Pelvic Exam: Chaperoned by environmental health specialist. No vaginal bleeding noted. No vaginal discharge noted. No malodor noted. [] Current Patient Data Vital Signs Vital Signs Date Time Temp Pulse Resp B/P (MAP) Pulse Ox O2 Delivery O2 Flow Rate FiO2 03/30/19 08:54 98.1 91 20 114/70 (85) 96 Room Air 98.1 Lab Values Laboratory Tests Test 03/30/19 09:00 Urine Collection Type Unknown Urine Color Yellow Urine Clarity Clear Urine pH 5.5 Urine Specific [place] >=1.030 Urine Protein Negative mg/dL (NEG-TRACE) Urine Glucose (UA) Negative mg/dL (NEG) Urine Ketones (Stick) Negative mg/dL (NEG) Urine Blood Negative (NEG) Urine Nitrite Negative (NEG) Urine Bilirubin Negative (NEG) Urine Urobilinogen Dipstick 0.2 mg/dL (0.2 mg/dL) Urine Leukocyte Esterase Negative (NEG) Urine RBC 0 /HPF (0-2) Urine WBC 1-4 /HPF (0-4) Urine Squamous Epithelial Cells Few /LPF Urine Bacteria Mod /HPF (0-FEW) Urine Mucus Mod /LPF Microbiology 03/30/19 Wet Prep - Final, Complete Laboratory Tests Test 03/30/19 09:00 Urine Collection Type Unknown Urine Color Yellow Urine Clarity Clear Urine pH 5.5 Urine Specific [place] >=1.030 Urine Protein Negative mg/dL (NEG-TRACE) Urine Glucose (UA) Negative mg/dL (NEG) Urine Ketones (Stick) Negative mg/dL (NEG) Urine Blood Negative (NEG) Urine Nitrite Negative (NEG) Urine Bilirubin Negative (NEG) Urine Urobilinogen Dipstick 0.2 mg/dL (0.2 mg/dL) Urine Leukocyte Esterase Negative (NEG) Urine RBC 0 /HPF (0-2) Urine WBC 1-4 /HPF (0-4) Urine Squamous Epithelial Cells Few /LPF Urine Bacteria Mod /HPF (0-FEW) Urine Mucus Mod /LPF Microbiology 03/30/19 Wet Prep - Final, Complete EKG EKG [] Radiology/Procedures Radiology/Procedures [] Course & Med Decision Making Course & Med Decision Making Pertinent Labs and Imaging studies reviewed. (See chart for details) [Continue awaiting lab results for vaginitis panel, patient complains about wait, advise we continue to await lab results. Patient agrees to wait an additional 10 minutes or less. Will check on status with Lab. Discussed lab results with patient,- no signs of UTI, no BV, no Trich, NO yeast. patient states she doesn't know how that can be. Discussed awaiting results for GC/Chlam. Discussed folow up with PCP. ] Dragon Disclaimer Dragon Disclaimer This electronic medical record was generated, in whole or in part, using a voice recognition dictation system. Departure Departure Impression: Primary Impression: Vagina itching Disposition: HOME, SELF-CARE Condition: GOOD Referrals: GUME KHANNA MD (PCP) Additional Instructions: As we discussed, there was no findings of yeast infection, no sign of Trichomonis, and no signs of Bacterial Vaginosis on your exams today. We are awaiting results from your Chlamydia and Gonorrhea screen,which will take 2-3 days to result. If this comes back positive, the hospital will reach out to you and discuss treatment options. You did not have any sign of bacteria on your urine tests today either. Please follow up with your primary care provider or OBGYN as needed. PONCHO BEEBE APRN Mar 30, 2019 09:09
[2019-03-30 09:14] LABS: BILIRUBIN,URINE NEGATIVE (NEG); CLARITY,URINE CLEAR; COLOR,URINE YELLOW; NITRITE,URINE NEGATIVE (NEG); PH,URINE 5.5; PROTEIN,URINE NEGATIVE (NEG-TRACE); UROBILINOGEN,URINE 0.2 mg/dL (0.2 mg/dL)
[2019-03-30 09:24] LABS: BACTERIA,URINE MOD /HPF (0-FEW); RBC,URINE 0 /HPF (0-2); SQUAMOUS EPITHELIAL CELL,UR FEW /LPF
[2019-04-02 19:11] LABS: GC PROBE Negative (Negative)
== END 2019-03-30 11:57 | disposition home or self-care (01) ==
LOC: ER 08:32
DX: L29.8 Other pruritus (principal); N89.8 Other specified noninflammatory disorders of vagina; E03.9 Hypothyroidism, unspecified; K58.9 Irritable bowel syndrome, unspecified; F43.10 Post-traumatic stress disorder, unspecified; Z98.51 Tubal ligation status; Z88.0 Allergy status to penicillin; Z88.2 Allergy status to sulfonamides; Z88.5 Allergy status to narcotic agent; Z88.8 Allergy status to other drugs, medicaments and biological substances
CPT/HCPCS: 81001; 87491; 87591; 99284; Q0111

== ENCOUNTER 2020-11-26 06:57 | Emergency (ER) | payer MEDICAID ==
[~2020-11-26] VITALS: Ht 157.5 cm; Wt 53.6 kg
[~2020-11-26 06:57] MED LIST changes: -LEVO112T4 PO; +LEVO112T49 PO; +MULT-445 PO; -MULT1TAB52 PO; -VALA500T PO; +VALA500T9 PO
[2020-11-26 07:06] VITALS: BP 99/60
--- NOTE | 2020-11-26 07:29 | ED.ADGEN ---
Past Medical History Past Medical History: Fibromyalgia, Hypothyroid, IBS, Other Additional Past Medical Histor: PTSD Past Surgical History: , Tubal ligation, Other Additional Past Surgical Histo: ganglion cyst removal, carpal tunnel release, D&C, ENDOMETRIAL ABLATION Smoking Status: Never Smoker Alcohol Use: None Drug Use: Marijuana General Adult EDM: Chief Complaint: ELBOW PROBLEM HPI: HPI: Patient is a 45-year-old female who arrives ambulatory to the emergency department complaining of the development of right elbow pain yesterday. Patient states she has pain of her right elbow and has increased pain when trying to take her right elbow through its range of motion. Patient points to the medial aspect of her elbow as to where she is experiencing the most pain. She denies any radiation of her symptoms. She further denies any history of injury, swelling or medical complaints otherwise. Specifically she denies any fevers and she is right-hand dominant. She is awake, alert and nontoxic- appearing. Review of Systems: Review of Systems: Constitutional: Denies fever or chills. [] Eyes: Denies change in visual acuity. [] HENT: Denies nasal congestion or sore throat. [] Respiratory: Denies cough or shortness of breath. [] Cardiovascular: Denies chest pain or edema. [] GI: Denies abdominal pain, nausea, vomiting, bloody stools or diarrhea. [] : Denies dysuria. [] Musculoskeletal: Reports right elbow pain. Denies back pain. [] Integument: Denies rash. [] Neurologic: Denies headache, focal weakness or sensory changes. [] Endocrine: Denies polyuria or polydipsia. [] Lymphatic: Denies swollen glands. [] Psychiatric: Denies depression or anxiety. [] Family History: Family History: Noncontributory Allergies: Allergies: Allergies Coded Allergies Type Severity Reaction Last Updated Verified Penicillins Allergy Intermediate rash 11/06/18 Yes Sulfa (Sulfonamide Antibiotics) Allergy Intermediate rash 11/06/18 Yes fluconazole Allergy Mild Blisters 11/06/18 Yes hydrocodone Allergy Mild nausea and vomiting 11/09/18 Yes acetaminophen Adverse Reaction Mild nausea 11/09/18 Yes oxycodone HCl Adverse Reaction Mild nausea 11/09/18 Yes Physical Exam: PE: Constitutional: Well developed, well nourished, no acute distress, non-toxic appearance. [] HENT: Normocephalic, atraumatic, bilateral external ears normal, oropharynx moist, no oral exudates, nose normal. [] Eyes: PERRLA, EOMI, conjunctiva normal, no discharge. [] Neck: Normal range of motion, no tenderness, supple, no stridor. [] Cardiovascular:Heart rate regular rhythm, no murmur [] Lungs & Thorax: Bilateral breath sounds clear to auscultation [] Abdomen: Bowel sounds normal, soft, no tenderness, no masses, no pulsatile masses. [] Skin: Warm, dry, no erythema, no rash. [] Back: No tenderness, no CVA tenderness. [] Extremities: Tenderness palpation of right elbow with range of motion restriction. No cyanosis, no clubbing, no edema. [] Neurologic: Alert and oriented X 3, normal motor function, normal sensory function, no focal deficits noted. [] Psychologic: Affect normal, judgement normal, mood normal. [] Current Patient Data: Vital Signs: Vital Signs Date Time Temp Pulse Resp B/P (MAP) Pulse Ox O2 Delivery O2 Flow Rate FiO2 11/26/20 07:06 97.5 97 20 99/60 (73) 98 Room Air 97.5 EKG: EKG: [] Heart Score: C/O Chest Pain: No Risk Factors: Risk Factors: DM, Current or recent (<one month) smoker, HTN, HLP, family history of CAD, obesity. Risk Scores: Score 0 - 3: 2.5% MACE over next 6 weeks - Discharge Home Score 4 - 6: 20.3% MACE over next 6 weeks - Admit for Clinical Observation Score 7 - 10: 72.7% MACE over next 6 weeks - Early Invasive Strategies Radiology/Procedures: Radiology/Procedures: [] Impression: [facility] [address] [place], [place] [id number] IMAGING REPORT Signed PATIENT: KIMBERLEY FRANCOIS LACCOUNT: [id number] : 1975 LOCATION: ER AGE: 45 SEX: F EXAM STATUS: REG ER ORD. PHYSICIAN: SALEEM HAWTHORNE DO REASON: pain, no injury PROCEDURE: ELBOW RIGHT 3V Right elbow 3 views. HISTORY: Pain right elbow 3 views were taken of the right elbow. There is not evidence of an acute fracture or osseous abnormality. Fat pads at the elbow are not displaced. IMPRESSION: 1. Negative right elbow. Electronically signed by: Fish Schafer MD (11/26/2020 8:02 AM) [id number] DICTATED and SIGNED BY: FISH SCHAFER MD DATE: 11/26/20 [id number] 0 Course & Med Decision Making: Course & Med Decision Making Pertinent Labs and Imaging studies reviewed. (See chart for details) [] Dragon Disclaimer: Dragon Disclaimer: This electronic medical record was generated, in whole or in part, using a voice recognition dictation system. Departure Departure Impression: Primary Impression: Right elbow pain Disposition: HOME / SELF CARE / HOMELESS Condition: STABLE Referrals: GUME KHANNA MD (PCP) Patient Instructions: Arthralgia Additional Instructions: The patient remains awake, alert and in no acute distress. After reevaluation of the patient's right elbow she does not have pain in the posterior aspect in the region of the olecranon or bursal sac. As such I do not believe this is bursitis. The patient's pain is medially and restricted to that space. Despite this it is not swollen, erythematous nor is there any external sign of trauma. I have advised the patient to follow-up with her primary care physician should she develop any rashes, fevers or increasing pain. Have also asked that she follow-up with her primary care physician or in the emergency department should she have any change in her condition. The patient understands and has agreed to do so. She is nontoxic-appearing and stable for discharge. Scripts Cyclobenzaprine Hcl (CYCLOBENZAPRINE HCL) 10 Mg Tablet 1 TAB PO TID for 5 Days, #15 TAB Prov: SALEEM HAWTHORNE DO 11/26/20 [c] No Conflict Check Prov: SALEEM HAWTHORNE DO 11/26/20 Prednisone (PREDNISONE) 50 Mg Tablet 1 TAB PO DAILY for 5 Days, #5 TAB Prov: SALEEM HAWTHORNE DO 11/26/20 Tramadol Hcl (ULTRAM) 50 Mg Tablet 50 MG PO Q6HRS PRN for PAIN for 3 Days, #12 TAB 0 Refills Prov: SALEEM HAWTHORNE DO 11/26/20 SALEEM HAWTHORNE DO November 26, 2020 07:29
--- NOTE | 2020-11-26 08:04 | RAD ---
Right elbow 3 views. HISTORY: Pain right elbow 3 views were taken of the right elbow. There is not evidence of an acute fracture or osseous abnormal ity. Fat pads at the elbow are not displaced. IMPRESSION: 1. Negative right elbow. Electronically signed by: Fish Schafer MD (11/26/2020 8:02 AM) [id number]
[2020-11-26] MEDS ORDERED: TRAM-48 PO (08:19)
[2020-11-26] MEDS ORDERED: PRED50TA PO (08:19)
[2020-11-26] MEDS ORDERED: CYCL10TA2 PO (08:19)
[2020-11-26] MEDS ORDERED: [UNRECOGNIZED DRUG - OTHER] (08:19)
== END 2020-11-26 08:25 | disposition home or self-care (01) ==
LOC: ER 06:57
DX: M25.521 Pain in right elbow (principal); E03.9 Hypothyroidism, unspecified; K58.9 Irritable bowel syndrome, unspecified; F43.10 Post-traumatic stress disorder, unspecified; Z88.0 Allergy status to penicillin; Z88.2 Allergy status to sulfonamides; Z88.5 Allergy status to narcotic agent; Z88.6 Allergy status to analgesic agent; Z88.8 Allergy status to other drugs, medicaments and biological substances
CPT/HCPCS: 73080; 99283

== ENCOUNTER 2020-12-01 17:29 | Emergency (ER) | payer MEDICAID ==
[~2020-12-01] VITALS: Ht 157.5 cm; Wt 54.5 kg
[~2020-12-01 17:29] MED LIST changes: +CYCL10TA2 PO; +PRED50TA PO; +TRAM-48 PO; +[UNRECOGNIZED DRUG - OTHER]
[2020-12-01] MEDS ORDERED: IV NORMAL SALINE 1000ML BAG 1,000 ML IV ONE (18:45)
[2020-12-01 18:51] LABS: BILIRUBIN,URINE NEGATIVE (NEG); CLARITY,URINE CLOUDY; COLOR,URINE YELLOW; NITRITE,URINE NEGATIVE (NEG); PROTEIN,URINE NEGATIVE (NEG-TRACE)
[2020-12-01 18:56] LABS: BACTERIA,URINE MANY /HPF (0-FEW)
[2020-12-01 18:57] LABS: RBC,URINE 0 /HPF (0-2); WBC,URINE RARE /HPF (0-4)
[2020-12-01 19:11] LABS: BASO # 0.1 x10^3/uL (0.0-0.2); BASO % 1 % (0-3); EOS # 0.2 x10^3/uL (0.0-0.7); EOS % 4 % (0-3); HEMATOCRIT 37.6 % (36.0-47.0); HEMOGLOBIN 12.8 g/dL (12.0-15.5); LYMPH # 2.7 x10^3/uL (1.0-4.8); LYMPH % 45 % (24-48); MEAN CORPUSCULAR HEMOGLOBIN 30 pg (25-35); MEAN CORPUSCULAR HGB CONC 34 g/dL (31-37); MEAN CORPUSCULAR VOLUME 88 fL (79-100); MONO # 0.4 x10^3/uL (0.0-1.1); MONO % 6 % (0-9); NEUT # 2.5 x10^3/uL (1.8-7.7); NEUT % 43 % (31-73); PLATELET COUNT 234 x10^3/uL (140-400); RED BLOOD COUNT 4.28 x10^6/uL (3.50-5.40); RED CELL DISTRIBUTION WIDTH 13.2 % (11.5-14.5); WHITE BLOOD COUNT 5.9 x10^3/uL (4.0-11.0)
[2020-12-01 19:23] LABS: CALCIUM 9.1 mg/dL (8.5-10.1); CREATININE 0.9 mg/dL (0.6-1.0); GFR 81.2; POTASSIUM 3.8 mmol/L (3.5-5.1)
[2020-12-01 19:30] LABS: ALBUMIN 3.8 g/dL (3.4-5.0); ALBUMIN/GLOBULIN RATIO 1.1 (1.0-1.7); MAGNESIUM 2.1 mg/dL (1.8-2.4); TOTAL BILIRUBIN 0.2 mg/dL (0.2-1.0); TOTAL PROTEIN 7.2 g/dL (6.4-8.2)
[2020-12-01] MEDS ORDERED: IOHEXOL 300 MG/ML 100ML VIAL. IV ONE (20:00)
[2020-12-01] MEDS ORDERED: CONTRAST GIVEN. MC PRN (20:15)
--- NOTE | 2020-12-01 20:16 | RAD ---
PQRS Compliance Statement: One or more of the following individualized dose reduction techniques were utilized for this examinat ion: 1. Automated exposure control 2. Adjustment of the mA and/or kV according to patient size 3. Use of iterative reconstruction technique Exam performed: Pelvic with contrast HISTORY: Left-sided abdominal pain DATE OF SERVICE: 12/01/2020. COMPARISON: None available TECHNIQUE: Contiguous helical acquisitions are obtained through the abdomen and pelvis during intrave nous administration of IV contrast. Sagittal and coronal reformatted images are obtained and reviewed . FINDINGS: Lung bases are clear. Visualized heart is normal. The liver, spleen, pancreas and gallbladder appear normal. Both adrenal glands and bilateral kidneys are normal in size with symmetric excretion of contrast via both kidneys. There is no hydronephrosis or nephrolithiasis. The aorta is normal in caliber without aneurysm. No retroperitoneal or mesenteric lymphadenopathy seen. There is diffuse scattered stool throughout the colon including the right sonia colon. Urinary bladder is partially decompressed. Uterus is likely surgically absent since prior study. No a dnexal masses are seen. No free fluid. Bones are normal. IMPRESSION: No acute intra-abdominal or pelvic process detected. Diffuse scattered stool throughout the colon. Correlate clinically for constipation. Electronically signed by: Perla Sherwood MD (12/01/2020 8:13 PM) [facility]
[2020-12-01 20:42] VITALS: BP 104/57
[2020-12-01] MEDS ORDERED: POLY119P4 PO (20:47)
--- NOTE | 2020-12-01 20:59 | ED.ADGEN ---
Past Medical History Past Medical History: Fibromyalgia, Hypothyroid, IBS, Other Additional Past Medical Histor: PTSD Past Surgical History: , Tubal ligation, Other Additional Past Surgical Histo: ganglion cyst removal, carpal tunnel release, D&C, ENDOMETRIAL ABLATION Smoking Status: Never Smoker Alcohol Use: None Drug Use: Marijuana General Adult EDM: Chief Complaint: ABDOMINAL PAIN HPI: HPI: Patient is a 45 year old AA female who presents to the emergency with complaints of continued left-sided abdominal pain for the last 4 months. Claudia gallardo states that she was seen at [facility] few months ago and was told that they will be arranging a follow-up appointment with her for a gastroenterology evaluation but she has yet to be advised of the appointment. She states that she has problems with constipation and frequently has small hard bowel movements. She denies any blood in the stools or foul-smelling stools, her last bowel movement was today and it was normal for her. She denies any nausea, vomiting, dysuria, hematuria, increased urinary frequency, fever, cough, shortness of breath, chest pain, dizziness, headache, or back pain. Patient states that at times it feels like she can feel the feces moving through her abdomen. She currently rates the discomfort a 3 out of 10 on the pain scale she describes it as a dull ache that is sometimes crampy. She denies any alleviating or exacerbating factors. Review of Systems: Review of Systems: Complete ROS is negative unless otherwise noted in HPI. Current Medications: Current Medications Medications (Trade) Dose Ordered Sig/Blanco Start Time Stop Time Status Last Admin Dose Admin Info (CONTRAST GIVEN -- Rx MONITORING) 1 each PRN DAILY PRN 12/01/20 20:15 12/03/20 20:14 Iohexol (Omnipaque 300 Mg/ml) 75 ml 1X ONCE 12/01/20 20:00 12/01/20 20:12 DC 12/01/20 20:04 75 ML Sodium Chloride 1,000 ml @ 1,000 mls/hr 1X ONCE 12/01/20 18:45 12/01/20 19:44 DC 12/01/20 19:06 1,000 MLS/HR Allergies: Allergies: Allergies Coded Allergies Type Severity Reaction Last Updated Verified Penicillins Allergy Intermediate rash 11/06/18 Yes Sulfa (Sulfonamide Antibiotics) Allergy Intermediate rash 11/06/18 Yes fluconazole Allergy Mild Blisters 11/06/18 Yes hydrocodone Allergy Mild nausea and vomiting 11/09/18 Yes acetaminophen Adverse Reaction Mild nausea 11/09/18 Yes oxycodone HCl Adverse Reaction Mild nausea 11/09/18 Yes Physical Exam: PE: See Above Constitutional: Well developed, well nourished, no acute distress, non-toxic appearance. [] HENT: Normocephalic, atraumatic, bilateral external ears normal, nose normal. [] Eyes: PERRLA, EOMI, conjunctiva normal, no discharge. [] Neck: Normal range of motion, no stridor. [] Cardiovascular:Heart rate regular rhythm Lungs & Thorax: Respirations even and unlabored, no retractions, no respiratory distress Abdomen: soft, LUQ and LLQ TTP, no rebound tenderness, no guarding, no palpable mass, no pulsatile masses Skin: Warm, dry, no erythema, no rash. [] Extremities: No cyanosis, ROM intact, no edema. [] Neurologic: Alert and oriented X 3, normal motor, normal sensory, no focal de ficits noted. [] Psychologic: Affect normal, judgement normal, mood normal. [] Current Patient Data: Labs: Laboratory Tests Test 12/01/20 17:41 12/01/20 17:54 12/01/20 19:06 Urine Collection Type Unknown Urine Color Yellow Urine Clarity Cloudy Urine pH 7.0 (<5.0-8.0) Urine Specific [place] >=1.030 (1.000-1.030) Urine Protein Negative mg/dL (NEG-TRACE) Urine Glucose (UA) Negative mg/dL (NEG) Urine Ketones (Stick) Trace mg/dL (NEG) Urine Blood Negative (NEG) Urine Nitrite Negative (NEG) Urine Bilirubin Negative (NEG) Urine Urobilinogen Dipstick 1.0 mg/dL (0.2 mg/dL) Urine Leukocyte Esterase Negative (NEG) Urine RBC 0 /HPF (0-2) Urine WBC Rare /HPF (0-4) Urine Squamous Epithelial Cells Many /LPF Urine Bacteria Many /HPF (0-FEW) Urine Mucus Marked /LPF POC Urine HCG, Qualitative Hcg negative (Negative) White Blood Count 5.9 x10^3/uL (4.0-11.0) Red Blood Count 4.28 x10^6/uL (3.50-5.40) Hemoglobin 12.8 g/dL (12.0-15.5) Hematocrit 37.6 % (36.0-47.0) Mean Corpuscular Volume 88 fL (79-100) Mean Corpuscular Hemoglobin 30 pg (25-35) Mean Corpuscular Hemoglobin Concent 34 g/dL (31-37) Red Cell Distribution Width 13.2 % (11.5-14.5) Platelet Count 234 x10^3/uL (140-400) Neutrophils (%) (Auto) 43 % (31-73) Lymphocytes (%) (Auto) 45 % (24-48) Monocytes (%) (Auto) 6 % (0-9) Eosinophils (%) (Auto) 4 % (0-3) H Basophils (%) (Auto) 1 % (0-3) Neutrophils # (Auto) 2.5 x10^3/uL (1.8-7.7) Lymphocytes # (Auto) 2.7 x10^3/uL (1.0-4.8) Monocytes # (Auto) 0.4 x10^3/uL (0.0-1.1) Eosinophils # (Auto) 0.2 x10^3/uL (0.0-0.7) Basophils # (Auto) 0.1 x10^3/uL (0.0-0.2) Sodium Level 144 mmol/L (136-145) Potassium Level 3.8 mmol/L (3.5-5.1) Chloride Level 107 mmol/L (98-107) Carbon Dioxide Level 31 mmol/L (21-32) Anion Gap 6 (6-14) Blood Urea Nitrogen 10 mg/dL (7-20) Creatinine 0.9 mg/dL (0.6-1.0) Estimated GFR (Cockcroft-Gault) 81.2 BUN/Creatinine Ratio 11 (6-20) Glucose Level 111 mg/dL (70-99) H Calcium Level 9.1 mg/dL (8.5-10.1) Magnesium Level 2.1 mg/dL (1.8-2.4) Total Bilirubin 0.2 mg/dL (0.2-1.0) Aspartate Amino Transferase (AST) 18 U/L (15-37) Alanine Aminotransferase (ALT) 22 U/L (14-59) Alkaline Phosphatase 70 U/L (46-116) Total Protein 7.2 g/dL (6.4-8.2) Albumin 3.8 g/dL (3.4-5.0) Albumin/Globulin Ratio 1.1 (1.0-1.7) Lipase 125 U/L (73-393) Laboratory Tests 12/01/20 19:06 Laboratory Tests 12/01/20 19:06 Vital Signs: Vital Signs Date Time Temp Pulse Resp B/P (MAP) Pulse Ox O2 Delivery O2 Flow Rate FiO2 12/01/20 18:04 98.0 90 18 125/56 (79) 98 Room Air 98.0 EKG: EKG: [] Heart Score: C/O Chest Pain: No Risk Scores: Score 0 - 3: 2.5% MACE over next 6 weeks - Discharge Home Score 4 - 6: 20.3% MACE over next 6 weeks - Admit for Clinical Observation Score 7 - 10: 72.7% MACE over next 6 weeks - Early Invasive Strategies Radiology/Procedures: Radiology/Procedures: PROCEDURE: CT ABD PELV W/ IV CONTRST ONLY PQRS Compliance Statement: One or more of the following individualized dose reduction techniques were utilized for this examination: 1. Automated exposure control 2. Adjustment of the mA and/or kV according to patient size 3. Use of iterative reconstruction technique Exam performed: Pelvic with contrast HISTORY: Left-sided abdominal pain DATE OF SERVICE: 12/01/2020. COMPARISON: None available TECHNIQUE: Contiguous helical acquisitions are obtained through the abdomen and pelvis during intravenous administration of IV contrast. Sagittal and coronal reformatted images are obtained and reviewed. FINDINGS: Lung bases are clear. Visualized heart is normal. The liver, spleen, pancreas and gallbladder appear normal. Both adrenal glands and bilateral kidneys are normal in size with symmetric excretion of contrast via both kidneys. There is no hydronephrosis or nephrolithiasis. The aorta is normal in caliber without aneurysm. No retroperitoneal or mesenteric lymphadenopathy seen. There is diffuse scattered stool throughout the colon including the right hemicolon. Urinary bladder is partially decompressed. Uterus is likely surgically absent since prior study. No adnexal masses are seen. No free fluid. Bones are normal. IMPRESSION: No acute intra-abdominal or pelvic process detected. Diffuse scattered stool throughout the colon. Correlate clinically for constipation. Electronically signed by: Perla Sherwood MD (12/01/2020 8:13 PM) [facility] [] Course & Med Decision Making: Course & Med Decision Making Pertinent Labs and Imaging studies reviewed. (See chart for details) 45-year-old female presented to emergency department with complaints of left sided abdominal pain with constipation for the last 4 months. CBC is unremarkable, CMP is also unremarkable, UA is not concerning for urinary tract infection there are trace ketones present. CT the patient's abdomen pelvis revealed no acute findings, there was diffuse scattered stool throughout the colon I discussed these results with the patient. I prescribed her MiraLAX to take twice daily for 5 days then 1 capful daily to keep stools regular. I also recommended that the patient take a daily probiotic or drink kombucha. I also encouraged her to increase her daily water intake. Patient is provided with Dr. Swann's information for further gastroenterology evaluation, return to the ER if symptoms worsen or fever develops. Patient verbalized an understanding of home care, medications, follow-up, and re turn to ED instructions and was in agreement with the plan of care. [] Dragon Disclaimer: Dragon Disclaimer: This electronic medical record was generated, in whole or in part, using a voice recognition dictation system. Departure Departure Impression: Primary Impression: Constipation Additional Impression: Abdominal pain Disposition: HOME / SELF CARE / HOMELESS Condition: STABLE Referrals: GUME KHANNA MD (PCP) AMNA SWANN MD Patient Instructions: Constipation, Adult, [id number] Additional Instructions: Fill the prescription and use it as directed. Increase clear fluids. Recommend that you eat a diet high in fiber. Follow-up with your primary care doctor or Dr. Swann for further evaluation of your ongoing problems with constipation and abdominal pain. Return to the ER if symptoms worsen or fever develops. Thank you for choosing [facility], it was a pleasure taking care of you today! Scripts Polyethylene Glycol 3350 (MIRALAX) 119 Gm Powder 17 GM PO BID for constipation for 5 Days, #255 GM 0 Refills Drink 1 capful in 8 oz of water twice daily for 5 days then once a day to keep stools regular Prov: KELLIE CALDERÓN PLACEMENT ASSISTANT 12/01/20 Problem Qualifiers Primary Impression: Constipation Constipation type: unspecified constipation type Qualified Codes: K59.00 - Constipation, unspecified Additional Impression: Abdominal pain Abdominal location: unspecified location Qualified Codes: R10.9 - Unspecified abdominal pain KELLIE CALDERÓN PLACEMENT ASSISTANT December 01, 2020 20:59
== END 2020-12-01 21:10 | disposition home or self-care (01) ==
LOC: ER 17:29
DX: K59.00 Constipation, unspecified (principal); E03.9 Hypothyroidism, unspecified; K58.9 Irritable bowel syndrome, unspecified; F43.10 Post-traumatic stress disorder, unspecified; Z88.0 Allergy status to penicillin; Z88.2 Allergy status to sulfonamides; Z88.5 Allergy status to narcotic agent; Z88.6 Allergy status to analgesic agent; Z88.8 Allergy status to other drugs, medicaments and biological substances
CPT/HCPCS: 36415; 74177; 80053; 81001; 81025; 83690; 83735; 85025; 87086; 96360; 99285; J7030; Q9967